=== PATIENT | male | born 1965 | race Caucasian/White ===

== ENCOUNTER 2017-01-22 17:49 | Emergency (ER) | payer SELFPAY ==
[~2017-01-22] VITALS: Ht 180.3 cm; Wt 95.3 kg
[2017-01-22 18:54] VITALS: BP 130/77
--- NOTE | 2017-01-22 19:52 | NUR ---
Patient to bed 08.
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
[2017-01-22] MEDS ORDERED: LIDOCAINE 1% ED 50 ML ONE (19:59)
[2017-01-22] MEDS ORDERED: NEOMYCIN/POLYMYXIN/BACITRACIN 0.9 GM/1 PKT TP ONE (19:59)
[2017-01-22] MEDS ORDERED: cefTRIAXone 1,000 MG in LIDOCAINE 1% ED 2.1 ML IM ONE (21:25)
--- NOTE | 2017-01-22 21:45 | NUR ---
DR MCQUEEN SUTURED LAC ON LEFT ELBOW. PT TOLERTED WELL.
[2017-01-22 22:19] VITALS: BP 140/82
--- NOTE | 2017-01-22 22:19 | NUR ---
Patient discharged with v/s stable. Written and verbal after care instructions given and explained. Patient alert, oriented and verbalized understanding of instructions. Ambulatory with steady gait. All questions addressed prior to discharge. ID band removed. Patient advised to follow up with PMD. Rx of NORCO AND BACTRIM given. Patient educated on indication of medication including possible reaction and side effects. Opportunity to ask questions provided and answered.
== END 2017-01-22 22:19 | disposition home or self-care (01) ==
LOC: MED 17:49
DX: S51.012A Laceration without foreign body of left elbow, initial encounter (principal); S51.022A Laceration with foreign body of left elbow, initial encounter; V49.49XA Driver injured in collision with other motor vehicles in traffic accident, initial encounter; Y93.89 Activity, other specified; Y92.488 Other paved roadways as the place of occurrence of the external cause; Y99.8 Other external cause status
CPT/HCPCS: 12044; 73080; 96372; 99284; J2001; Q0092; 90715

== ENCOUNTER 2017-01-29 10:36 | Emergency (ER) | payer SELFPAY ==
[~2017-01-29] VITALS: Ht 180.3 cm; Wt 95.3 kg
[2017-01-29 10:48] VITALS: BP 122/68
--- NOTE | 2017-01-29 10:55 | NUR ---
Dr. Scherer evaluating patient in [place].
--- NOTE | 2017-01-29 10:55 | NUR ---
PT PRESENTS TO ER FOR SUTURE REMOVAL, LEFT ELBOW; DENIES N/V/D; SKIN IS PINK/WARM/DRY; AAOX4 WITH EVEN AND STEADY GAIT; LUNGS CLEAR BL; HR EVEN AND REGULAR; PT DENIES ANY FEVER, CP, SOB, OR COUGH AT THIS TIME; PATIENT STATES PAIN OF 0/10 AT THIS TIME; VSS; PATIENT POSITIONED FOR COMFORT; HOB ELEVATED; BEDRAILS UP X2; BED DOWN. ER MD MADE AWARE OF PT STATUS.
[2017-01-29] MEDS ORDERED: NEOMYCIN/POLYMYXIN/BACITRACIN 0.9 GM/1 PKT TP ONE (11:08)
--- NOTE | 2017-01-29 11:11 | NUR ---
NEOSPORIN APPLIED TOPICALLY BY NUVIA DELUNA AFTER SUTURE REMOVAL, COVERED WITH NON STICK GAUZE
[2017-01-29 11:14] VITALS: BP 111/68
--- NOTE | 2017-01-29 11:14 | NUR ---
Patient discharged with v/s stable. Written and verbal after care instructions given and explained. Patient verbalized understanding. Ambulatory with steady gait. All questions addressed prior to discharge. Advised to follow up with PMD.
== END 2017-01-29 11:14 | disposition home or self-care (01) ==
LOC: MED 10:36
DX: S51.012D Laceration without foreign body of left elbow, subsequent encounter (principal); R03.0 Elevated blood-pressure reading, without diagnosis of hypertension; X58.XXXD Exposure to other specified factors, subsequent encounter
CPT/HCPCS: 99283